=== PATIENT | female | born 1980 | race Caucasian/White ===

== ENCOUNTER 2019-10-17 00:18 | Emergency (ER) | payer OTHER ==
[~2019-10-17] VITALS: Ht 177.8 cm; Wt 154.5 kg
--- NOTE | 2019-10-17 00:57 | PHYS DOC ---
Adult General Chief Complaint Chief Complaint: DIZZY/LIGHT HEADED HPI HPI 39-year-old female with underlying history of hypertension presents to the emergency department after syncopal episode. Patient [place] developed a cold sweat lightheadedness and subsequently passed out. Patient was provided soda at the facility and subsequently improved however began to feel more lightheaded and was brought to the emergency department for further evaluation denies any history of diabetes, hypoglycemia, states she had normal appetite today. She denies any shortness of breath, chest pain. Blood pressures 150/72, blood sugar 187. Nothing makes her symptoms worse, nothing makes her symptoms better. Review of Systems Review of Systems Constitutional: Denies fever or chills [] Eyes: Denies change in visual acuity, redness, or eye pain [] HENT: Denies nasal congestion or sore throat [] Respiratory: Denies cough or shortness of breath [] Cardiovascular: No additional information not addressed in HPI [] GI: Denies abdominal pain, nausea, vomiting, bloody stools or diarrhea [] : Denies dysuria or hematuria [] Musculoskeletal: Denies back pain or joint pain [] Integument: Denies rash or skin lesions [] Neurologic: Denies headache, focal weakness or sensory changes [] Endocrine: Denies polyuria or polydipsia [] All other systems were reviewed and found to be within normal limits, except as documented in this note. Current Medications Current Medications Current Medications Medications (Trade) Dose Ordered Sig/Lizette Start Time Stop Time Status Last Admin Dose Admin Acetaminophen (Tylenol) 1,000 mg 1X ONCE 10/17/19 02:15 10/17/19 02:16 DC 10/17/19 02:27 1,000 MG Potassium Chloride (Klor-Con) 40 meq 1X ONCE 10/17/19 02:15 10/17/19 02:16 DC 10/17/19 02:27 40 MEQ Allergies Allergies Allergies Coded Allergies Type Severity Reaction Last Updated Verified Unable to Assess 10/17/19 No Physical Exam Physical Exam Constitutional: Well developed, well nourished, no acute distress, non-toxic appearance. [] HENT: Normocephalic, atraumatic, bilateral external ears normal, oropharynx moist, no oral exudates, nose normal. [] Eyes: PERRLA, EOMI, conjunctiva normal, no discharge. [] Neck: Normal range of motion, no tenderness, supple, no stridor. [] Cardiovascular:Heart rate regular rhythm, no murmur [] Lungs & Thorax: Bilateral breath sounds clear to auscultation [] Abdomen: Bowel sounds normal, soft, no tenderness, no masses, no pulsatile masses. [] Skin: Warm, dry, no erythema, no rash. [] Back: No tenderness, no CVA tenderness. [] Extremities: No tenderness, no cyanosis, no clubbing, ROM intact, no edema. [] Neurologic: Alert and oriented X 3, normal motor function, normal sensory function, no focal deficits noted. [] Psychologic: Affect normal, judgement normal, mood normal. [] Current Patient Data Lab Values Laboratory Tests Test 10/17/19 00:37 10/17/19 01:15 Glucose (Fingerstick) 187 mg/dL (70-99) H White Blood Count 10.2 x10^3/uL (4.0-11.0) Red Blood Count 4.22 x10^6/uL (3.50-5.40) Hemoglobin 11.2 g/dL (12.0-15.5) L Hematocrit 35.2 % (36.0-47.0) L Mean Corpuscular Volume 84 fL (79-100) Mean Corpuscular Hemoglobin 27 pg (25-35) Mean Corpuscular Hemoglobin Concent 32 g/dL (31-37) Red Cell Distribution Width 16.3 % (11.5-14.5) H Platelet Count 306 x10^3/uL (140-400) Neutrophils (%) (Auto) 80 % (31-73) H Lymphocytes (%) (Auto) 13 % (24-48) L Monocytes (%) (Auto) 5 % (0-9) Eosinophils (%) (Auto) 1 % (0-3) Basophils (%) (Auto) 1 % (0-3) Neutrophils # (Auto) 8.1 x10^3/uL (1.8-7.7) H Lymphocytes # (Auto) 1.4 x10^3/uL (1.0-4.8) Monocytes # (Auto) 0.5 x10^3/uL (0.0-1.1) Eosinophils # (Auto) 0.1 x10^3/uL (0.0-0.7) Basophils # (Auto) 0.1 x10^3/uL (0.0-0.2) D-Dimer (Anabella) 0.30 ug/mlFEU (0.00-0.50) Sodium Level 138 mmol/L (136-145) Potassium Level 3.1 mmol/L (3.5-5.1) L Chloride Level 100 mmol/L (98-107) Carbon Dioxide Level 29 mmol/L (21-32) Anion Gap 9 (6-14) Blood Urea Nitrogen 11 mg/dL (7-20) Creatinine 1.1 mg/dL (0.6-1.0) H Estimated GFR (Cockcroft-Gault) 54.7 BUN/Creatinine Ratio 10 (6-20) Glucose Level 128 mg/dL (70-99) H Calcium Level 8.9 mg/dL (8.5-10.1) Magnesium Level 2.0 mg/dL (1.8-2.4) Total Bilirubin 0.2 mg/dL (0.2-1.0) Aspartate Amino Transferase (AST) 19 U/L (15-37) Alanine Aminotransferase (ALT) 21 U/L (14-59) Alkaline Phosphatase 67 U/L (46-116) Troponin I Quantitative < 0.017 ng/mL (0.000-0.055) Total Protein 8.0 g/dL (6.4-8.2) Albumin 3.7 g/dL (3.4-5.0) Albumin/Globulin Ratio 0.9 (1.0-1.7) L Laboratory Tests 10/17/19 01:15 Laboratory Tests 10/17/19 01:15 EKG EKG EKG reviewed interpretation time 00 44, normal sinus rhythm, heart rate 86, normal axis no evidence of STEMI[] Radiology/Procedures Radiology/Procedures [facility] [address] [place], [place] [id number] IMAGING REPORT Signed PATIENT: MARTHA COKER ACCOUNT: [id number] : 1980 LOCATION: ER AGE: 39 SEX: F EXAM STATUS: REG ER ORD. PHYSICIAN: JENSEN SCHULZ MD REASON: syncope, ?head injury PROCEDURE: CT HEAD WO CONTRAST CT Head W/O Contrast: History: Syncope, head injury Comparison: none Axial images were obtained without contrast. The miramontes and white matter appears normal and symmetrical for the patients age. There is no mass effect, extraaxial fluid collections or hydrocephalus. There is no gross bleed. There is no focal loss of miramontes-white matter distinction to suggest acute ischemia, i.e. stroke. Impression: No acute findings. PQRS Compliance Statement: One or more of the following individualized dose reduction techniques were utilized for this examination: 1. Automated exposure control 2. Adjustment of the mA and/or kV according to patient size 3. Use of iterative reconstruction technique Electronically signed by: Amber Delarosa III, MD (10/17/2019 2:27 AM) [id number] DICTATED and SIGNED BY: AMBER DELAROSA III, MD DATE: 10/17/19 022 [] Course & Med Decision Making Course & Med Decision Making Pertinent Labs and Imaging studies reviewed. (See chart for details) []39-year-old female with underlying history of hypertension presents to the emergency department after syncopal episode. Patient [place] tonight developed a cold sweat lightheadedness and subsequently passed out. Patient was provided soda at the facility and subsequently improved however began to feel more lightheaded and was brought to the emergency department for further evaluation denies any history of diabetes, hypoglycemia, states she had normal appetite today. She denies any shortness of breath, chest pain. Blood pressures 150/72, blood sugar 187. Nothing makes her symptoms worse, nothing makes her symptoms better. Labs/Imaging reviewed Evidence of hypokalemia - replaced in ER Symptoms likely associated with hypoglycemia Recommend monitoring blood sugar daily to keep tabs Recommend following up with PCP for further discussion and evaluation Dragon Disclaimer Dragon Disclaimer This electronic medical record was generated, in whole or in part, using a voice recognition dictation system. Departure Departure Impression: Primary Impression: Hypoglycemia Additional Impression: Hypokalemia Disposition: 01 HOME, SELF-CARE Condition: IMPROVED Patient Instructions: Hypoglycemia (Low Blood Sugar) Additional Instructions: Recommend follow up with PCP 3 - 5 days Return to the ER with worsening symptoms, syncope, persistent low blood sugar Glucometer prescription provided Recommend keeping diary of blood sugar and following up with PCP Please see hypoglycemia instructions Problem Qualifiers JENSEN SCHULZ MD Oct 17, 2019 00:57
[2019-10-17 01:27] LABS: BASO # 0.1 x10^3/uL (0.0-0.2); BASO % 1 % (0-3); EOS # 0.1 x10^3/uL (0.0-0.7); EOS % 1 % (0-3); HEMATOCRIT 35.2 % (36.0-47.0); HEMOGLOBIN 11.2 g/dL (12.0-15.5); LYMPH # 1.4 x10^3/uL (1.0-4.8); LYMPH % 13 % (24-48); MEAN CORPUSCULAR HEMOGLOBIN 27 pg (25-35); MEAN CORPUSCULAR HGB CONC 32 g/dL (31-37); MEAN CORPUSCULAR VOLUME 84 fL (79-100); MONO # 0.5 x10^3/uL (0.0-1.1); MONO % 5 % (0-9); NEUT # 8.1 x10^3/uL (1.8-7.7); NEUT % 80 % (31-73); PLATELET COUNT 306 x10^3/uL (140-400); RED BLOOD COUNT 4.22 x10^6/uL (3.50-5.40); RED CELL DISTRIBUTION WIDTH 16.3 % (11.5-14.5); WHITE BLOOD COUNT 10.2 x10^3/uL (4.0-11.0)
[2019-10-17 01:35] LABS: CALCIUM 8.9 mg/dL (8.5-10.1); CREATININE 1.1 mg/dL (0.6-1.0); GFR 54.7; POTASSIUM 3.1 mmol/L (3.5-5.1)
[2019-10-17 01:41] LABS: ALBUMIN 3.7 g/dL (3.4-5.0); ALBUMIN/GLOBULIN RATIO 0.9 (1.0-1.7); TOTAL BILIRUBIN 0.2 mg/dL (0.2-1.0)
[2019-10-17] MEDS ORDERED: POTASSIUM CHLORIDE 20 MEQ TABLET.ER. PO ONE (02:15)
[2019-10-17] MEDS ORDERED: ACETAMINOPHEN 500 MG TABLET PO ONE (02:15)
--- NOTE | 2019-10-17 02:30 | RAD ---
CT Head W/O Contrast: History: Syncope, head injury Comparison: none Axial images were obtained without contrast. The miramontes and white matter appears normal and symmetrical for the patients age. There is no mass effect, extraaxial fluid collections or hydrocephalus. There is no gross bleed. There is no focal loss of miramontes-white matter distinction to suggest acute ischemia, i.e. stroke. Impression: No acute findings. RS Compliance Statement: One or more of the following individualized dose reduction techniques were utilized for this examination: 1. Automated exposure control 2. Adjustment of the mA and/or kV according to patient size 3. Use of iterative reconstruction technique Electronically signed by: Juan Garcia III, MD (10/17/2019 2:27 AM) [id number]
[2019-10-17 02:42] VITALS: BP 138/86
--- NOTE | 2019-10-19 06:14 | EKG ---
[facility] [address] [place] [address] Test Date: 2019-10-17 Test Time: 00:44:53 Pat Name: MARTHA COKER Department: Room: Gender: F [employer]: : 1980 Requested By: JENSEN SCHULZ Order Number: [id number] Reading MD: Measurements Intervals [place] Rate: 86 P: 36 [place]: 130 QRS: 68 QRSD: 94 T: -7 QT: 422 QTc: 508 Interpretive Statements SINUS RHYTHM QRS(T) CONTOUR ABNORMALITY CONSIDER ANTEROSEPTAL MYOCARDIAL DAMAGE CONSIDER INFERIOR MYOCARDIAL DAMAGE PROLONGED QT POSSIBLY ABNORMAL ECG RI6.01 No previous ECG available for comparison
== END 2019-10-17 02:55 | disposition home or self-care (01) ==
LOC: ER 00:18
DX: E16.2 Hypoglycemia, unspecified (principal); E87.6 Hypokalemia; R55 Syncope and collapse; R42 Dizziness and giddiness
CPT/HCPCS: 36415; 70450; 80053; 82962; 83735; 84484; 85025; 85379; 93005; 99285